=== PATIENT | female | born 1990 | race Caucasian/White ===

== ENCOUNTER 2017-08-31 11:16 | Outpatient (CLI) | payer OTHER | END 2017-08-31 12:47 | disposition home or self-care (01) | LOC: LC 11:16 | PROVIDERS: ATTEND Obstetrics & Gynecology Gynecology | PROC: 4A1HXCZ Monitoring of Products of Conception, Cardiac Rate, External Approach (ICD-10-PCS; principal; 2017-08-31) | DX: O47.1 False labor at or after 37 completed weeks of gestation (principal); O48.0 Post-term pregnancy; Z3A.40 40 weeks gestation of pregnancy | CPT/HCPCS: 59025 ==

== ENCOUNTER 2017-09-03 07:00 | Inpatient (IN) | payer OTHER ==
[2017-09-03] MEDS ORDERED: MISOPROSTOL 0.2 MG TABLET ONE (07:32)
[2017-09-03] MEDS ORDERED: LIDOCAINE 1% INJ-PF (10 MG/ML) 30 ML SDV ONE (07:32)
[2017-09-03] MEDS ORDERED: OXYTOCIN/NORMAL SALINE 20 UNIT/1,000 ML RTUINJ ONE (07:33)
[2017-09-03] MEDS ORDERED: RINGERS SOLUTION,LACTATED 1,000 ML IV ONE (07:33)
[2017-09-03] MEDS ORDERED: RINGERS SOLUTION,LACTATED 1,000 ML IV PRN (07:33)
[2017-09-03 08:22] LABS: ABSOLUTE LYMPHOCYTES (AUTO) 2.6 10^3/uL (0.5-4.7); ABSOLUTE MONOCYTES (AUTO) 0.7 10^3/uL (0.1-1.4); ABSOLUTE NEUT (AUTO) 6.6 10^3/uL (1.7-8.2); BASOPHILS % (AUTO) 0.4 % (0-2); EOSINOPHILS % (AUTO) 0.2 % (0-6); HEMATOCRIT 34.4 % (36.0-47.0); HEMOGLOBIN 11.3 g/dL (12.0-15.5); LYMPHOCYTES % (AUTO) 26.4 % (13-45); MEAN CORPUSCULAR HEMOGLOBIN 26.2 pg (27.0-33.4); MEAN CORPUSCULAR HGB CONC 32.9 g/dL (32.0-36.0); MEAN CORPUSCULAR VOLUME 80 fl (80-97); MONOCYTES % (AUTO) 6.9 % (3-13); PLATELET COUNT 177 10^3/uL (150-450); RED BLOOD COUNT 4.31 10^6/uL (3.72-5.28); RED CELL DISTRIBUTION WIDTH 16.1 % (11.5-14.0); SEGMENTED NEUTROPHILS % (AUTO) 66.1 % (42-78); TOTAL CELLS COUNTED % (AUTO) 100 %
[2017-09-03] MEDS ORDERED: PROMETHAZINE HCL 25 MG SUPP.RECT PR PRN (08:40)
[2017-09-03] MEDS ORDERED: ZOLPIDEM TARTRATE 5 MG TABLET PO PRN (08:40)
[2017-09-03] MEDS ORDERED: MAGNESIUM HYDROXIDE SUSP 30 ML UDCUP PO PRN (08:40)
[2017-09-03] MEDS ORDERED: OXYTOCIN/NORMAL SALINE 20 UNIT/1,000 ML RTUINJ IV PRN (08:40)
[2017-09-03] MEDS ORDERED: ACETAMINOPHEN WITH CODEINE #3 TABLET PO PRN ×2 (08:40)
[2017-09-03] MEDS ORDERED: DIBUCAINE 1% OINTMENT 28 GM TP PRN (08:40)
[2017-09-03] MEDS ORDERED: PROMETHAZINE HCL INJ 25 MG/1 ML VIAL IV PRN (08:40)
[2017-09-03] MEDS ORDERED: GLYCERIN/WITCH HAZEL LEAF 1 EACH MED..PAD TP PRN (08:40)
[2017-09-03] MEDS ORDERED: DIPHENHYDRAMINE HCL 25 MG CAPSULE PO PRN (08:40)
[2017-09-03] MEDS ORDERED: BENZOCAINE/MENTHOL AEROSOL SPRAY 56 ML TOP PRN (08:40)
[2017-09-03] MEDS ORDERED: PSEUDOEPHEDRINE HCL 30 MG TABLET PO PRN (08:40)
[2017-09-03] MEDS ORDERED: DIPH/PERTUSS(ACELL)/TETANUS VAC/PF 0.5 ML SYR (>=10YO) IM PRN (08:40)
[2017-09-03] MEDS ORDERED: NA PHOS,M-B/NA PHOS,DI-BA (ADULT) 133 ML ENEMA PR PRN (08:40)
[2017-09-03] MEDS ORDERED: MEASLES,MUMPS&RUBELLA VACC/PF 0.5 ML VIAL SUBCUT PRN (08:40)
[2017-09-03] MEDS ORDERED: PROMETHAZINE HCL 25 MG TABLET PO PRN (08:40)
[2017-09-03] MEDS ORDERED: ACETAMINOPHEN 325 MG TABLET PO PRN (08:40)
--- NOTE | 2017-09-03 08:46 | Admission Physical ---
Datetime Report Generated by CPN: 09/03/2017 08:45 CURRENT ADMISSION Hx Assessment: The History has been Reviewed and is Current Chief Complaint: Uterine Contractions Indication for Induction: Not Applicable Admit Impression : Term, Intrauterine ; Active Labor; Intact Membranes Admit Plan: Admit to Unit; Initiate Labor Protocol ALLERGIES Medication Allergies: No Medication Allergies: No Known Allergies (08/31/2017) Latex: No Latex Allergies Food Allergies: N/A Environmental Allergies: N/a OBSTETRICAL HISTORY EDC: 08/30/2017 00:00 : 5 Para: 2 Term: 2 : 0 SAB: 2 IAB: 0 Ectopic: 0 Livin Cesareans: 0 VBACs: 0 Multiple Births: 0 Gestational Diabetes: No Rh Sensitization: No Incompetent Cervix: No JERI: No Infertility: No ART Treatment: No Uterine Anomaly: No IUGR: No Hx Previous C/S: No Macrosomia: No Hx Loss/Stillborn: No PIH: No Hx : No Placenta Previa/Abruption: No Depression/PP Depression: No PTL/PROM: No Post Hemorrhage: No Current Procedures: Ultrasound; NST Obstetrical History Comments: G1 - 2013, Boy, 39 weeks G2 - 2016, Boy, 39 weeks G3 G4 G5 - Current SEE RECORDS Alcohol: No Marijuana : No Cocaine: No Other Illicit Drugs: No Cigarettes: Never Smoker. 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 Heart Disease: No Hosp/Surgery: No Autoimmune Disorder: No Anesthetic Complications: No Kidney Disease: No Abnormal Pap Smear: Yes Neuro/Epilepsy: No Psychiatric Disorders: No Other Medical Diseases: No Hepatitis/Liver Disease: No Significant Family History: No Varicosities/Phlebitis: No Trauma/Violence : No Thyroid Dysfunction: No Medical History Comments: Leep in , widom teeth INFECTIOUS HISTORY Gonorrhea: No Genital Herpes: No Chlamydia: No Tuberculosis: No Syphilis: No Hepatitis: No HIV/AIDS Exposure: No Rash or Viral Illness: No HPV: No PHYSICAL EXAM General: Normal HEENT: Normal Neurologic: Normal Thyroid: Normal Heart: Normal Lungs: Normal Breast: Normal Back: Normal Abdomen: Normal Genitourinary Exam: Normal Extremities: Normal DTRs: Normal Pelvic Type: Adequate Physical Exam Comments: pelvis proven 7 lbs Vital Signs: Reviewed VAGINAL EXAM Dilatation: 6 Effacement: 70 Station: -3 Contraction Comments: 2-4 MEMBRANES Membranes: Intact FETUS A EGA: 40.4 Monitoring: External US FHR- Baseline: 145 Variability: Moderate 6-25bpm Accelerations: 15X15 Decelerations: None FHR Category: Category I Estimated Weight (gm): 4100 Presentation: Vertex Admit Comment: Active labor GBS neg plan AROM Anticipate PLANS FOR LABOR AND DELIVERY Labor and Delivery: None Pain Management: Natural Feeding Preference: Both Benefit of Breast Feed Discussed: Yes Circumcision: N/A INFORMED CONSENT Assignment: Amy Armstrong MD Signature: with User ID: Chrissie : with User ID: [email or web address]
[2017-09-03] MEDS ORDERED: ACETAMINOPHEN 325 MG TABLET ONE (09:07)
[2017-09-03 09:28] LABS: APPEARANCE,URINE SLIGHTLY-CLOUDY; BILIRUBIN,URINE NEGATIVE (NEGATIVE); COLOR,URINE YELLOW; GLUCOSE, URINE NEGATIVE (NEGATIVE); KETONES,URINE NEGATIVE (NEGATIVE); LEUKOCYTE ESTERASE,URINE SMALL (NEGATIVE); NITRITE,URINE NEGATIVE (NEGATIVE); PROTEIN,URINE 100 mg/dL (NEGATIVE); URINE SPECIFIC GRAVITY 1.023; UROBILINOGEN,URINE NEGATIVE mg/dL (<2.0)
[2017-09-03 09:49] LABS: URINE AMPHETAMINES SCREEN NEGATIVE; URINE BARBITURATES SCREEN NEGATIVE; URINE BENZODIAZEPINES SCREEN NEGATIVE; URINE COCAINE SCREEN NEGATIVE; URINE MARIJUANA (THC) SCREEN NEGATIVE; URINE METHADONE SCREEN NEGATIVE; URINE PHENCYCLIDINE SCREEN NEGATIVE
[2017-09-03] MEDS: FERROUS SULFATE 325 MG TABLET PO SCH ×2 (13:13→17:49)
[2017-09-03] MEDS: DOCUSATE SODIUM 100 MG CAPSULE PO SCH ×2 (13:13→17:49)
[2017-09-03] MEDS: PRENATAL VITAMIN W DHA CAPSULE PO SCH (13:13)
[2017-09-03] MEDS: SENNOSIDES/DOCUSATE 8.6-50 MG 1 EACH TABLET PO SCH (13:13)
[2017-09-03] MEDS: FAMOTIDINE 20 MG TABLET PO SCH ×2 (13:13→21:46)
[2017-09-03] MEDS: IBUPROFEN 800 MG TABLET PO SCH ×2 (13:22→21:47)
[2017-09-04] MEDS: IBUPROFEN 800 MG TABLET PO SCH ×2 (05:53→14:47)
[2017-09-04 07:01] LABS: HEMATOCRIT 28.1 % (36.0-47.0); HEMOGLOBIN 9.3 g/dL (12.0-15.5); MEAN CORPUSCULAR HEMOGLOBIN 26.7 pg (27.0-33.4); MEAN CORPUSCULAR HGB CONC 33.1 g/dL (32.0-36.0); MEAN CORPUSCULAR VOLUME 81 fl (80-97); PLATELET COUNT 149 10^3/uL (150-450); RED BLOOD COUNT 3.49 10^6/uL (3.72-5.28); RED CELL DISTRIBUTION WIDTH 16.1 % (11.5-14.0); WHITE BLOOD COUNT 10.2 10^3/uL (4.0-10.5)
--- NOTE | 2017-09-04 09:55 | PDOC PROGRESS REPORT ---
Subjective-OB Progress Note for:: 09/04/17 Physical Exam (OB) Vital Signs: Temp Pulse Resp BP Pulse Ox 97.5 F 83 16 139/80 H 98 09/04/17 08:45 09/04/17 08:45 09/04/17 08:45 09/04/17 08:45 09/04/17 08:45 Intake & Output 09/03/17 09/04/17 09/05/17 06:59 06:59 06:59 Intake Total 150 Balance 150 Weight 71.668 kg - PIH/Pre-Eclampsia DTR's: 1 + Clonus: Positive - Lochia Lochia Amount: Scant < 10 ml Lochia Color: Rubra/Red - Abdomen Description: Soft Hernia Present: No Bowel Sounds: Normoactive Flatus Presence: Present Stool: No Fundal Description: Firm, Midline Fundal Height: u/3 - u/4 Objective-Diagnostic Laboratory: 09/04/17 06:36 09/04/17 06:36 WBC 10.2 RBC 3.49 L Hgb 9.3 L Hct 28.1 L MCV 81 MCH 26.7 L MCHC 33.1 RDW 16.1 H Plt Count 149 L
[2017-09-04] MEDS: FAMOTIDINE 20 MG TABLET PO SCH ×2 (10:24→22:07)
[2017-09-04] MEDS: DOCUSATE SODIUM 100 MG CAPSULE PO SCH ×2 (10:25→17:39)
[2017-09-04] MEDS: FERROUS SULFATE 325 MG TABLET PO SCH ×2 (10:25→17:39)
[2017-09-04] MEDS: SENNOSIDES/DOCUSATE 8.6-50 MG 1 EACH TABLET PO SCH (10:25)
[2017-09-04] MEDS: PRENATAL VITAMIN W DHA CAPSULE PO SCH (10:28)
[2017-09-05] MEDS: IBUPROFEN 800 MG TABLET PO SCH ×2 (05:09→14:14)
[2017-09-05] MEDS: SENNOSIDES/DOCUSATE 8.6-50 MG 1 EACH TABLET PO SCH (09:24)
[2017-09-05] MEDS: DOCUSATE SODIUM 100 MG CAPSULE PO SCH (09:25)
[2017-09-05] MEDS: PRENATAL VITAMIN W DHA CAPSULE PO SCH (09:25)
[2017-09-05] MEDS: FERROUS SULFATE 325 MG TABLET PO SCH (09:25)
[2017-09-05] MEDS: FAMOTIDINE 20 MG TABLET PO SCH (09:25)
--- NOTE | 2017-09-05 10:40 | PDOC PROGRESS REPORT ---
Subjective-OB Progress Note for:: 09/05/17 Subjective: Ready for discharge. Physical Exam (OB) Vital Signs: Temp Pulse Resp BP Pulse Ox 98.0 F 91 17 132/79 H 99 09/05/17 07:50 09/05/17 07:50 09/05/17 07:50 09/05/17 07:50 09/05/17 07:50 Intake & Output 09/04/17 09/05/17 09/06/17 06:59 06:59 06:59 Intake Total 150 Balance 150 Weight 71.668 kg - PIH/Pre-Eclampsia DTR's: 1 + Clonus: Positive - Lochia Lochia Amount: Scant < 10 ml Lochia Color: Rubra/Red - Abdomen Description: Tender, Soft Hernia Present: No Bowel Sounds: Normoactive Flatus Presence: Present Stool: Yes Fundal Description: Firm, Midline Fundal Height: u/u - u/2 Objective-Diagnostic Laboratory: 09/04/17 06:36
--- NOTE | 2017-09-05 10:43 | PDOC DISCHARGE SUMMARY ---
Final Diagnosis Discharge Date: 09/05/17 - Final Diagnosis (1) Active labor at term Is this a current diagnosis for this admission?: Yes (2) Obstetrical laceration, second degree Is this a current diagnosis for this admission?: Yes (3) Vaginal delivery Is this a current diagnosis for this admission?: Yes Discharge Data - Discharge Medication Home Medications: Vit,Calc78/Iron/Folic [Prenatabs FA Tablet] 1 each PO DAILY 09/03/17 Ferrous Sulfate [Feosol 325 mg Tablet] 325 mg PO BID tablet 09/05/17 Gestational Age: 40.4 wks Reason(s) for Admission: Onset of Labor Procedures: Ultrasound Intrapartum Procedure(s): Spontaneous Vaginal Delivery Complication(s): Laceration-Vaginal Laceration-Degree: 2nd - [place] Data Baby 1 Female at 1 minute: 8 at 5 minutes: 9 Weight: 4.167 kg Home with Mother: No Complications: Yes - Meconium aspiration - Diagnosis Test Laboratory: Temp Pulse Resp BP Pulse Ox 98.0 F 91 17 132/79 H 99 09/05/17 07:50 09/05/17 07:50 09/05/17 07:50 09/05/17 07:50 09/05/17 07:50 09/03/17 09/03/17 09/04/17 07:49 09:16 06:36 RBC 4.31 3.49 L Hgb 11.3 L 9.3 L Hct 34.4 L 28.1 L Urine Opiates Screen NEGATIVE - Discharge information/Instructions Discharge Activity: Activity As Tolerated, Balance Activity w/Rest, Pelvic Rest , Slowly Increase Activity, No tub bath Discharge Diet: Regular Disposition: HOME, SELF-CARE Follow up with: [facility] in: 4, Weeks
[2017-09-05 11:58] VITALS: BP 135/71
== END 2017-09-05 14:16 | disposition home or self-care (01) | DRG 775 ==
LOC: LC 07:00 → LR 07:23 → 2S 10:45
PROVIDERS: ADMIT Obstetrics & Gynecology; ATTEND Obstetrics & Gynecology
PROC: 0KQM0ZZ Repair Perineum Muscle, Open Approach (ICD-10-PCS; principal; 2017-09-03)
PROC: 10E0XZZ Delivery of Products of Conception, External Approach (ICD-10-PCS; 2017-09-03)
PROC: 4A1HXCZ Monitoring of Products of Conception, Cardiac Rate, External Approach (ICD-10-PCS; 2017-09-03)
DX: O77.0 Labor and delivery complicated by meconium in amniotic fluid (principal); O62.3 Precipitate labor; O70.1 Second degree perineal laceration during delivery; Z37.0 Single live birth; Z3A.40 40 weeks gestation of pregnancy; Z91.040 Latex allergy status
CPT/HCPCS: 36415; 80307; 81005; 85025; 85027; 86592; 86850; 86900; 86901; J2590; J3490